=== PATIENT | female | born 1945 | race Caucasian/White ===

== ENCOUNTER 2018-06-04 21:57 | Emergency (ER) | payer OTHER ==
[~2018-06-04] VITALS: Ht 162.6 cm; Wt 47.6 kg
[2018-06-04 21:58] VITALS: BP 127/73
[2018-06-04] MEDS ORDERED: oxyCODONE/APAP (5/325 MG) 1 UDTAB TABLET ONE (22:47)
[2018-06-04] MEDS ORDERED: IBUPROFEN 600 MG TABLET PO ONE ×2 (22:48→23:00)
[2018-06-04] MEDS ORDERED: oxyCODONE/APAP (5/325 MG) 1 UDTAB TABLET PO ONE (23:00)
== END 2018-06-05 01:41 | disposition home or self-care (01) ==
LOC: ER 21:59
DX: S52.502A Unspecified fracture of the lower end of left radius, initial encounter for closed fracture (principal); S30.0XXA Contusion of lower back and pelvis, initial encounter; Z60.2 Problems related to living alone; W01.0XXA Fall on same level from slipping, tripping and stumbling without subsequent striking against object, initial encounter; Y93.K1 Activity, walking an animal; Y92.89 Other specified places as the place of occurrence of the external cause; Y99.8 Other external cause status
CPT/HCPCS: 25605; 72170; 72192; 72220; 73100; 73110; 73130; 99284; A4606; A6402; A6403; Z7610